=== PATIENT | female | born 1945 | race Caucasian/White ===

== ENCOUNTER 2021-05-16 14:35 | Observation (INO) ==
[2021-05-16 16:01] LABS: Bilirubin,Total 0.8 MG/DL (0.20-1.00); Calcium 9.7 MG/DL (8.5-10.1); Osmolality,Calculated 282.3 MOS/KG (273-304)
[2021-05-16 16:01] LABS: ABG Base Excess -2.1 MMOL/L (-2.5-2.5); ABG HCO3 22.7 MMOL/L (20-26); ABG PCO2 31.8 MM HG (35-48); ABG PH 7.435 (7.35-7.45)
[2021-05-16 16:13] LABS: Basophils # 0.1 10*3/uL (0.0-0.2); Basophils % 0.6 % (0.0-0.8); Eosinophils # 0.1 10*3/uL (0.0-0.87); Eosinophils % 1.3 % (0.00-10.9); Hematocrit 38.9 VOL% (35.7-47.0); Hemoglobin 12.9 GM/DL (12.0-16.0); Immature Granulocytes % 0.6 %; Immature Granulocytes Absolute 0.05 #; Lymphocytes # 2.7 10*3/uL (1.4-4.0); Lymphocytes % 30.8 % (21.3-54.2); Mean Corpuscular HGB Conc 33.2 GM/DL (32-36); Mean Corpuscular Volume 91.1 FL (87-102); Mean Platelet Volume 10.6 FL (9.6-12.0); Neutrophils % 59.7 % (38.7-73.9); Platelet Count 214 T/CUMM (130-400); Red Blood Count 4.27 MC/CUMM (3.8-5.5); Red Cell Distribution Width 13.3 % (9.3-17.3); White Blood Count 8.6 T/CUMM (4-12)
[2021-05-16] MEDS ORDERED: ONDANSETRON 4 MG/2 ML VIAL IV PRN (18:32)
[2021-05-16] MEDS ORDERED: MORPHINE 2 MG/1 ML SYRINGE IV PRN (18:32)
[2021-05-16] MEDS ORDERED: DEXTROSE 50% 25 GM/50 ML VIAL IV PRN (18:32)
[2021-05-16] MEDS ORDERED: GLUCAGON 1 MG VIAL IM PRN (18:32)
[2021-05-16] MEDS ORDERED: ACETAMINOPHEN 325 MG TABLET PO PRN (18:32)
[2021-05-16] MEDS ORDERED: SERTRALINE 25 MG TABLET ONE (20:05)
[2021-05-16] MEDS: ALBUTEROL/IPRATROPIUM 3 ML NEB RESP TX SCH (21:30)
[2021-05-16] MEDS: SIMVASTATIN 20 MG TABLET PO SCH (22:33)
[2021-05-16] MEDS: carvediloL 6.25 MG TABLET PO SCH (22:33)
[2021-05-16] MEDS: ENOXAPARIN 40 MG/0.4 ML SYRINGE SUBCUT SCH (22:33)
[2021-05-16] MEDS: INSULIN REGULAR 100 UNIT/ML SUBCUT SCH (22:33)
[2021-05-17] MEDS: ALBUTEROL/IPRATROPIUM 3 ML NEB RESP TX SCH ×4 (01:42→20:45)
[2021-05-17 07:23] LABS: Basophils % 0.3 % (0.0-0.8); Eosinophils # 0.2 10*3/uL (0.0-0.87); Eosinophils % 2.5 % (0.00-10.9); Hematocrit 34.5 VOL% (35.7-47.0); Hemoglobin 11.2 GM/DL (12.0-16.0); Immature Granulocytes % 0.4 %; Immature Granulocytes Absolute 0.03 #; Lymphocytes # 2.6 10*3/uL (1.4-4.0); Lymphocytes % 38.4 % (21.3-54.2); Mean Corpuscular HGB Conc 32.5 GM/DL (32-36); Mean Corpuscular Volume 91.3 FL (87-102); Mean Platelet Volume 10.4 FL (9.6-12.0); Monocytes % 8.2 % (1.7-12.7); Neutrophils % 50.2 % (38.7-73.9); Platelet Count 146 T/CUMM (130-400); Red Blood Count 3.78 MC/CUMM (3.8-5.5); Red Cell Distribution Width 13.2 % (9.3-17.3); White Blood Count 6.7 T/CUMM (4-12)
[2021-05-17] MEDS: INSULIN REGULAR 100 UNIT/ML SUBCUT SCH ×4 (07:57→20:38)
[2021-05-17] MEDS: PANTOPRAZOLE 40 MG TABLET PO SCH (09:12)
[2021-05-17] MEDS: ASPIRIN CHEW 81 MG TABLET PO SCH (09:12)
[2021-05-17] MEDS: PRASUGREL 10 MG TABLET PO SCH (09:13)
[2021-05-17] MEDS: carvediloL 6.25 MG TABLET PO SCH ×2 (09:13→20:37)
[2021-05-17 09:57] LABS: Calcium 8.9 MG/DL (8.5-10.1); Osmolality,Calculated 280.4 MOS/KG (273-304)
[2021-05-17 09:58] LABS: Risk Ratio 3.67; Thyroid Stimulating Hormone 4.14 uIU/ml (0.358-3.74); VLDL Cholesterol 38.4 MG/DL
[2021-05-17] MEDS ORDERED: FUROSEMIDE 40 MG/4 ML VIAL IV ONE (15:50)
[2021-05-17] MEDS ORDERED: clonazePAM 0.5 MG TABLET PO ONE (15:51)
[2021-05-17] MEDS: CHOLECALCIFEROL 5,000 UNIT TABLET PO SCH (20:37)
[2021-05-17] MEDS: POLYCARBOPHIL 625 MG TABLET PO SCH (20:37)
[2021-05-17] MEDS: DOCUSATE SODIUM 100 MG CAPSULE PO SCH (20:37)
[2021-05-17] MEDS: SIMVASTATIN 20 MG TABLET PO SCH (20:37)
[2021-05-17] MEDS: busPIRone 5 MG TABLET PO SCH (20:38)
[2021-05-17] MEDS: SERTRALINE 25 MG TABLET PO SCH (20:38)
[2021-05-17] MEDS: RANOLAZINE 500 MG TABLET PO SCH (20:38)
[2021-05-17] MEDS: ENOXAPARIN 40 MG/0.4 ML SYRINGE SUBCUT SCH (20:39)
[2021-05-17] MEDS ORDERED: SACUBITRIL/VALSARTAN 49-51 MG TABLET PO SCH (21:00)
[2021-05-18] MEDS: ALBUTEROL/IPRATROPIUM 3 ML NEB RESP TX SCH ×4 (02:18→19:43)
[2021-05-18 05:48] LABS: Calcium 8.8 MG/DL (8.5-10.1); Osmolality,Calculated 277.8 MOS/KG (273-304); Potassium 3.8 MMOL/L (3.5-5.1)
[2021-05-18] MEDS: INSULIN REGULAR 100 UNIT/ML SUBCUT SCH ×4 (07:37→20:35)
[2021-05-18] MEDS: SPIRONOLACTONE 25 MG TABLET PO SCH (09:36)
[2021-05-18] MEDS: MONTELUKAST 10 MG TABLET PO SCH (09:36)
[2021-05-18] MEDS: PRASUGREL 10 MG TABLET PO SCH (09:36)
[2021-05-18] MEDS: ASPIRIN CHEW 81 MG TABLET PO SCH (09:37)
[2021-05-18] MEDS: CHOLECALCIFEROL 5,000 UNIT TABLET PO SCH ×2 (09:37→20:34)
[2021-05-18] MEDS: PANTOPRAZOLE 40 MG TABLET PO SCH (09:37)
[2021-05-18] MEDS: MAGNESIUM OXIDE 400 MG TABLET PO SCH (09:37)
[2021-05-18] MEDS: DOCUSATE SODIUM 100 MG CAPSULE PO SCH ×2 (09:37→20:35)
[2021-05-18] MEDS: POLYCARBOPHIL 625 MG TABLET PO SCH ×2 (09:37→20:34)
[2021-05-18] MEDS: RANOLAZINE 500 MG TABLET PO SCH ×2 (09:37→20:34)
[2021-05-18] MEDS: busPIRone 5 MG TABLET PO SCH ×2 (09:37→20:34)
[2021-05-18] MEDS: carvediloL 6.25 MG TABLET PO SCH ×2 (09:39→20:34)
[2021-05-18 12:19] LABS: Basophils % 0.3 % (0.0-0.8); Eosinophils # 0.1 10*3/uL (0.0-0.87); Eosinophils % 1.5 % (0.00-10.9); Hematocrit 37.1 VOL% (35.7-47.0); Hemoglobin 12.1 GM/DL (12.0-16.0); Immature Granulocytes % 0.5 %; Immature Granulocytes Absolute 0.04 #; Lymphocytes # 2.7 10*3/uL (1.4-4.0); Lymphocytes % 30.2 % (21.3-54.2); Mean Corpuscular HGB Conc 32.6 GM/DL (32-36); Mean Corpuscular Volume 89.6 FL (87-102); Mean Platelet Volume 10.2 FL (9.6-12.0); Monocytes % 7.9 % (1.7-12.7); Neutrophils % 59.6 % (38.7-73.9); Platelet Count 189 T/CUMM (130-400); Red Blood Count 4.14 MC/CUMM (3.8-5.5); Red Cell Distribution Width 13.1 % (9.3-17.3); White Blood Count 8.9 T/CUMM (4-12)
[2021-05-18] MEDS: ENOXAPARIN 40 MG/0.4 ML SYRINGE SUBCUT SCH (20:33)
[2021-05-18] MEDS: SERTRALINE 25 MG TABLET PO SCH (20:35)
[2021-05-18] MEDS: clonazePAM 0.5 MG TABLET PO SCH (20:35)
[2021-05-18] MEDS: SIMVASTATIN 20 MG TABLET PO SCH (20:35)
[2021-05-19] MEDS: ALBUTEROL/IPRATROPIUM 3 ML NEB RESP TX SCH ×3 (00:56→14:55)
[2021-05-19 05:06] LABS: Basophils % 0.4 % (0.0-0.8); Eosinophils # 0.2 10*3/uL (0.0-0.87); Eosinophils % 3.2 % (0.00-10.9); Hematocrit 34.6 VOL% (35.7-47.0); Hemoglobin 11.1 GM/DL (12.0-16.0); Immature Granulocytes % 0.7 %; Immature Granulocytes Absolute 0.05 #; Lymphocytes # 2.9 10*3/uL (1.4-4.0); Lymphocytes % 39.1 % (21.3-54.2); Mean Corpuscular HGB Conc 32.1 GM/DL (32-36); Mean Corpuscular Volume 90.6 FL (87-102); Mean Platelet Volume 10.2 FL (9.6-12.0); Monocytes % 8.7 % (1.7-12.7); Neutrophils % 47.9 % (38.7-73.9); Platelet Count 151 T/CUMM (130-400); Red Blood Count 3.82 MC/CUMM (3.8-5.5); Red Cell Distribution Width 13.2 % (9.3-17.3); White Blood Count 7.5 T/CUMM (4-12)
[2021-05-19 05:21] LABS: Calcium 8.9 MG/DL (8.5-10.1); Osmolality,Calculated 279.7 MOS/KG (273-304); Potassium 3.8 MMOL/L (3.5-5.1)
[2021-05-19] MEDS: INSULIN REGULAR 100 UNIT/ML SUBCUT SCH ×2 (08:29→12:01)
[2021-05-19] MEDS: RANOLAZINE 500 MG TABLET PO SCH (09:48)
[2021-05-19] MEDS: POLYCARBOPHIL 625 MG TABLET PO SCH (09:48)
[2021-05-19] MEDS: carvediloL 6.25 MG TABLET PO SCH (09:50)
[2021-05-19] MEDS: busPIRone 5 MG TABLET PO SCH (09:50)
[2021-05-19] MEDS: CHOLECALCIFEROL 5,000 UNIT TABLET PO SCH (09:50)
[2021-05-19] MEDS: PRASUGREL 10 MG TABLET PO SCH (09:50)
[2021-05-19] MEDS: ASPIRIN CHEW 81 MG TABLET PO SCH (09:50)
[2021-05-19] MEDS: MAGNESIUM OXIDE 400 MG TABLET PO SCH (09:50)
[2021-05-19] MEDS: MONTELUKAST 10 MG TABLET PO SCH (09:51)
[2021-05-19] MEDS: SPIRONOLACTONE 25 MG TABLET PO SCH (09:51)
[2021-05-19] MEDS: PANTOPRAZOLE 40 MG TABLET PO SCH (09:51)
[2021-05-19] MEDS: DOCUSATE SODIUM 100 MG CAPSULE PO SCH (09:51)
[2021-05-19] MEDS: clonazePAM 0.5 MG TABLET PO SCH (09:51)
[2021-05-19 12:01] VITALS: BP 108/60
== END 2021-05-19 16:00 | disposition home or self-care (01) ==
LOC: N.ED 14:35 → N.EDINP 14:35 → N.TELEN 21:01
PROVIDERS: ADMIT Hospitalist; ATTEND Hospitalist